=== PATIENT | male | born 1950 | race Caucasian/White ===

== ENCOUNTER → 2017-06-12 | Outpatient (CLI) | payer MEDICARE, BC ==
[2017-06-12 09:08] LABS: Blood Urea Nitrogen 24 mg/dL (9-20); Non-African American GFR(MDRD) >60 (>60 ml/min/1.73 sqM)
--- NOTE | 2017-06-12 11:29 | MR ---
EXAMINATION TYPE: MR lumbar spine wo/w con DATE OF EXAM: 06/12/2017 COMPARISON: NONE HISTORY: low back pain , numbness TECHNIQUE: Multiplanar, multisequence images of the lumbar spine were acquired utilizing 13 mL intravenous Gadav ist gadolinium contrast. L1-L2: Posterior broad-based disc bulge causes mild anterior mass effect on the thecal sac. No signif icant foraminal encroachment or central stenosis. Facet arthropathy change with hypertrophy of the li gamentum flavum encroaches on the lateral recesses. L2-L3: Broad-based posterior disc herniation causes mild anterior mass effect on the thecal sac centr ally. No significant central stenosis. There is facet arthropathy with hypertrophy of the ligamentum flavum encroaching on the lateral recesses. No significant foraminal encroachment. L3-L4: Posterior extension of endplate disc complex is present, there is posterior central disc herni ation causing mild anterior mass effect on the thecal sac. Facet arthropathy with hypertrophy of the ligamentum flavum encroaches on the lateral recesses. No significant foraminal encroachment, only mil d central stenosis. L4-L5: Posterior extension of endplate disc complex causes mild anterior mass effect on the thecal sa c. Facet arthropathy with hypertrophy ligamentum flavum encroaches on the lateral recesses. Circumfer ential extension of endplate disc complex results in some foraminal encroachment bilaterally left gre ater than right. No significant central stenosis. L5-S1: Posterior extension of endplate disc complex causes mild anterior mass effect on the thecal sa c, circumferential extension causes bilateral foraminal encroachment. No significant central stenosis . Lumbar segments are intact. No paraspinal masses are identified. Conus medullaris has a normal appe arance. There is a spinal curvature. There is multilevel spondylosis. Loss of disc height and signal present at the intervertebral levels with associated vacuum phenomenon. Multilevel Schmorl's node for mation is also present. No significant enhancement following contrast administration. IMPRESSION: Degenerative disc disease, multilevel facet arthropathy, foraminal encroachment as described. Spinal curvature.
== END | disposition home or self-care (01) ==
LOC: RADMRIMAIN 08:28
PROVIDERS: ATTEND Internal Medicine
DX: M51.36 Other intervertebral disc degeneration, lumbar region (principal); M46.96 Unspecified inflammatory spondylopathy, lumbar region; I10 Essential (primary) hypertension
CPT/HCPCS: 82565; 84520; 72158; A9581

== ENCOUNTER 2019-03-04 06:38 | Day surgery (SDC) | payer BC, MEDICARE ==
[2019-02-25 09:52] VITALS: BMI 34.2
[~2019-03-04 06:38] MED LIST: LACTATED RINGERS 1,000 ML IV SCH; LIDOCAINE 1% 20 ML VIAL (10MG/ML) FOR IV START INTRADERMA PRN
[2019-03-04 07:16] VITALS: TEMP 98
[2019-03-04 07:29] LABS: Glucose,Whole Blood 111 mg/dL (75-99)
[2019-03-04] MEDS ORDERED: LIDOCAINE 1% INJ 10MG/ML (20 ML MDV) ONE (07:35)
[2019-03-04] MEDS ORDERED: PROPOFOL 10 MG/ML 20 ML VIAL IV ONE (07:35)
--- NOTE | 2019-03-04 07:43 | P.GSHP ---
History of Present Illness H&P Date: 03/04/19 CHIEF COMPLAINT: GERD and colon screen HISTORY OF PRESENT ILLNESS: The patient is a 68-year-old male who presents with gastroesophageal reflux disease and need for colon screen. Upper and lower endoscopy were offered for further evaluation and management. PAST MEDICAL HISTORY: Please see list. PAST SURGICAL HISTORY: Please see list. MEDICATIONS: Please see list. ALLERGIES: Please see list. SOCIAL HISTORY: No illicit drug use FAMILY HISTORY: No reports of Crohn disease or ulcerative colitis. REVIEW OF ORGAN SYSTEMS: CONSTITUTIONAL: No reports of fevers or chills. GI: Denies any blood in stools or constipation. PHYSICAL EXAM: VITAL SIGNS: Stable GENERAL: Well-developed pleasant in no acute distress. HEENT: No scleral icterus. Extraocular movements grossly intact. Moist buccal mucosa. NECK: Supple without lymphadenopathy. CHEST: Unlabored respirations. Equal bilateral excursions. CARDIOVASCULAR: Regular rate and rhythm. Distal 2+ pulses. ABDOMEN: Soft, nondistended. MUSCULOSKELETAL: No clubbing, cyanosis, or edema. ASSESSMENT: 1. Gastroesophageal reflux disease 2. Colon screen. PLAN: 1. 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 "borderline diabetic" diet controlled History of Any Multi-Drug Resistant Organisms: None Reported Past Surgical History: Appendectomy, Orthopedic Surgery Additional Past Surgical History / Comment(s): haylie carpal tunnel, rt shoulder surgery to remove spurs,haylie foot surgery to remove spurs Past Anesthesia/Blood Transfusion Reactions: No Reported Reaction Smoking Status: Never smoker - Past Family History Mother Family Medical History: Cancer Father Family Medical History: Myocardial Infarction (MD) Medications and Allergies Home Medications Medication Instructions Recorded Confirmed Type Acetaminophen [Tylenol Arthritis] 650 mg PO DAILY 02/25/19 03/04/19 History Ergocalciferol (Vitamin D2) 50,000 unit PO FR 02/25/19 03/04/19 History [Vitamin D2] Gabapentin [Neurontin] 300 mg PO TID 02/25/19 03/04/19 History Levothyroxine Sodium [Synthroid] 25 mcg PO DAILY 02/25/19 03/04/19 History Losartan Potassium [Cozaar] 50 mg PO DAILY 02/25/19 03/04/19 History Naproxen [Naprosyn] 500 mg PO Q12HR 02/25/19 02/25/19 History Homer-3 Fatty Acids [Homer-3] 1,000 mg PO QID 02/25/19 02/25/19 History Omeprazole [PriLOSEC] 20 mg PO AC-BRKFST 02/25/19 03/04/19 History buPROPion [Wellbutrin] 100 mg PO DAILY 02/25/19 03/04/19 History Allergies Allergy/AdvReac Type Severity Reaction Status Date / Time aspirin Allergy Swelling Verified 03/04/19 07:11 Surgical - Exam Vital Signs Temp Pulse Resp BP Pulse Ox 98.0 F 93 16 157/87 97 03/04/19 07:14 03/04/19 07:14 03/04/19 07:14 03/04/19 07:14 03/04/19 07:14 Results - Labs Abnormal Lab Results - Last 24 Hours (Table) 03/04/19 Range/Units 07:23 POC Glucose (mg/dL) 111 H (75-99) mg/dL
--- NOTE | 2019-03-04 07:53 | P.PCN ---
Date of Procedure: 03/04/19 Description of Procedure: PREOPERATIVE DIAGNOSIS: Gastroesophageal reflux disease. POSTOPERATIVE DIAGNOSIS: Gastritis with recent bleeding Gastroesophageal reflux disease. Diaphragmatic hiatal hernia OPERATION: Esophagogastroduodenoscopy with biopsies along antrum. SURGEON: Phylicia Monge MD ANESTHESIA: MAC. INDICATIONS: The patient is a 68-year-old male who presents with a history of reflux disease. Benefits and risks of the procedure were described. Informed consent was obtained. DESCRIPTION: The patient was brought into the endoscopy suite and laid in the left lateral decubitus position. An Olympus gastroscope was passed along the posterior oropharynx down to the distal esophagus where the squamocolumnar junction was encountered at 38 cm from the incisors. The stomach was entered and no bile reflux was found. Additional findings are listed below. Biopsies with cold forceps were obtained of the antrum. The first through third portion of the duodenum was examined and unremarkable. Retroflexion of the scope confirmed Hill grade 4 lower esophageal valve. The squamocolumnar junction demonstrated LA grade B erosive esophagitis. The stomach was desufflated. The patient tolerated the procedure well. FINDINGS: Squamocolumnar junction 38 cm from the incisors. Diaphragmatic hiatus at 41 cm. Hiatal hernia, 3 cm Hill grade 4 lower esophageal valve. LA grade B erosive esophagitis. No active duodenitis. Chronic gastritis with recent bleed at gastric cardia Few small hyperplastic gastric polyps gastric fundus RECOMMENDATIONS: Upper endoscopy as needed.
--- NOTE | 2019-03-04 08:11 | P.PCN ---
Date of Procedure: 03/04/19 Description of Procedure: PREOPERATIVE DIAGNOSIS: Personal history of colon polyps. POSTOPERATIVE DIAGNOSIS: Personal history of colon polyps. Sigmoid colon polyp Hepatic flexure colon polyp External hemorrhoids, grade 2. OPERATION: Colonoscopy to the ileocecal valve and appendiceal orifice. Colonoscopy with multiple cold forceps biopsies. SURGEON: Phylicia Monge MD. ANESTHESIA: MAC. INDICATIONS: The patient is a 68-year-old male who presents for colonoscopy screening. Last colonoscopy 5 years ago. Benefits and risks were described and informed consent was obtained. DESCRIPTION OF PROCEDURE: The patient had undergone GoLytely prep. He had been brought into the operating room and laid in the left lateral decubitus position. After adequate intravenous sedation, the rectum was examined with 2% lidocaine jelly. External hemorrhoids were encountered. The rectal tone was within normal limits. No lesions were palpated in the rectal vault. An Olympus colonoscope was advanced until the ileocecal valve and appendiceal orifice were clearly viewed. The prep was fair with visualization of the mucosal folds. No scattered diverticulosis was encountered. Multiple colonic polyps were cold forcep biopsy. No evidence of focal colitis was found. Retroflexion of the scope demonstrated grade 2 internal hemorrhoids without active bleeding or inflammation. The colon was desufflated. The patient had tolerated the procedure well. Withdrawal time was over 6 minutes. FINDINGS: Aronchick preparation quality scale 2 (1-5) Internal hemorrhoids, grade 2 External hemorrhoids, grade 3. No arteriovenous malformations. Removal of 2 polyps: - Cold forceps biopsy at 25 cm from the anal verge, 3 mm polyp. - Cold forceps biopsy at hepatic flexure, 3 mm polyp. No focal colitis. RECOMMENDATIONS: Was high risk colon polyps, repeat colonoscopy 3 years, 2021 Plan - Discharge Summary Discharge Rx Participant: No New Discharge Prescriptions: New Omeprazole 40 mg PO DAILY #90 capsule.dr Continue Losartan Potassium [Cozaar] 50 mg PO DAILY Gabapentin [Neurontin] 300 mg PO TID buPROPion [Wellbutrin] 100 mg PO DAILY Ergocalciferol (Vitamin D2) [Vitamin D2] 50,000 unit PO FR Levothyroxine Sodium [Synthroid] 25 mcg PO DAILY Acetaminophen [Tylenol Arthritis] 650 mg PO DAILY [place]-3 Fatty Acids [[place]-3] 1,000 mg PO QID Naproxen [Naprosyn] 500 mg PO Q12HR Discontinued Omeprazole [PriLOSEC] 20 mg PO AC-BRKT Discharge Medication List Acetaminophen [Tylenol Arthritis] 650 mg PO DAILY 02/25/19 [History] Ergocalciferol (Vitamin D2) [Vitamin D2] 50,000 unit PO FR 02/25/19 [History] Gabapentin [Neurontin] 300 mg PO TID 02/25/19 [History] Levothyroxine Sodium [Synthroid] 25 mcg PO DAILY 02/25/19 [History] Losartan Potassium [Cozaar] 50 mg PO DAILY 02/25/19 [History] Naproxen [Naprosyn] 500 mg PO Q12HR 02/25/19 [History] Cat [place]-3 Fatty Acids [[place]-3] 1,000 mg PO QID 02/25/19 [History] buPROPion [Wellbutrin] 100 mg PO DAILY 02/25/19 [History] Omeprazole 40 mg PO DAILY #90 capsule. 03/04/19 [Rx] Follow up Appointment(s)/Referral(s): Phylicia Monge MD [STAFF PHYSICIAN] - 03/31/19 Patient Instructions/Handouts: Hiatal Hernia (DC), Gastritis (DC), Gastroesophageal Reflux Disease (DC), Colorectal Polyps (DC), Hemorrhoids (ED) Activity/Diet/Wound Care/Special Instructions: Repeat colonoscopy in 3 years, 2021 Discharge Disposition: HOME SELF-CARE
[2019-03-04 08:30] VITALS: BP 130/72; PULSE 77; RESP 18
== END 2019-03-04 08:41 | disposition home or self-care (01) ==
LOC: ORWHC2ENDO 06:38
PROVIDERS: ATTEND Surgery Plastic and Reconstructive Surgery
DX: Z12.11 Encounter for screening for malignant neoplasm of colon (principal); K63.5 Polyp of colon; Z86.010 Personal history of colon polyps; K64.1 Second degree hemorrhoids; K64.2 Third degree hemorrhoids; K29.51 Unspecified chronic gastritis with bleeding; K21.0 Gastro-esophageal reflux disease with esophagitis; K31.7 Polyp of stomach and duodenum; I10 Essential (primary) hypertension; K44.9 Diaphragmatic hernia without obstruction or gangrene; E11.9 Type 2 diabetes mellitus without complications; E07.9 Disorder of thyroid, unspecified; N42.9 Disorder of prostate, unspecified; F41.9 Anxiety disorder, unspecified; M19.90 Unspecified osteoarthritis, unspecified site; Z79.890 Hormone replacement therapy; Z79.899 Other long term (current) drug therapy; Z82.49 Family history of ischemic heart disease and other diseases of the circulatory system; Z80.9 Family history of malignant neoplasm, unspecified
CPT/HCPCS: 88305; 45380; 43239; J2001; J2704

== ENCOUNTER → 2024-05-13 | Outpatient (CLI) | payer MEDICARE ==
--- NOTE | 2024-05-13 12:55 | CT ---
EXAMINATION TYPE: CT brain wo con CT DLP: 1167.7 mGycm, Automated exposure control for dose reduction was used. DATE OF EXAM: 05/13/2024 12:43 PM COMPARISON: None. CLINICAL INDICATION:Male, 73 years old with history of R42 DIZZINESS M62.81 MUSC WEAK R41.3 ANMESIA, c/o dizziness, weakness, memory loss TECHNIQUE: Brain: Multiple axial CT images of the brain were obtained without IV contrast. . Coronal and sagitta l reformats reviewed. FINDINGS: Brain: Extra-axial spaces: No abnormal extra-axial fluid collections. Ventricular system: Within normal limits Cerebral parenchyma: Age appropriate cerebral volume loss. No acute intraparenchymal hemorrhage or ma ss effect. The murphy-white junction is well differentiated. Scattered hypoattenuating areas are seen within the periventricular white matter. Cerebellum: Unremarkable. Mass effect: No evidence of midline shift. Intracranial vasculature: Atherosclerotic calcifications of the intracranial vessels. Soft tissues: Normal. Calvarium/osseous structures: No depressed skull fracture. Paranasal sinuses and mastoid air cells: Clear Visualized orbits: Orbital contents are intact. IMPRESSION: 1. No acute intracranial process. 2. Nonspecific white matter changes, likely secondary to chronic small vessel ischemic disease. [facility], , 05/13/2024 12:52 PM
== END | disposition home or self-care (01) ==
LOC: RADCTMAIN 11:47
PROVIDERS: ATTEND Psychiatry & Neurology Neurology
DX: M62.81 Muscle weakness (generalized) (principal); R42 Dizziness and giddiness; R41.3 Other amnesia; I67.82 Cerebral ischemia; I70.8 Atherosclerosis of other arteries
CPT/HCPCS: 70450

== ENCOUNTER → 2024-07-24 | Outpatient (CLI) | payer MEDICARE ==
--- NOTE | 2024-07-24 15:02 | MR ---
EXAMINATION TYPE: MR Prostate wo/w con DATE OF EXAM: 07/24/2024 10:01 AM COMPARISON: None. CLINICAL INDICATION: Male, 74 years old with history of N40.2 prostate nodule; Prostate nodule/mass TECHNIQUE: Multi-planar, multi-sequence imaging of the pelvis is performed prior to and following the uncomplicated administration of bolus intravenous gadolinium. IV Contrast: 10.5 mL Gadobutrol Interpretive Criteria: PI-RADS v2.1 SERUM PSA: 1.82 SURGICAL PATHOLOGY: No data available. FINDINGS: Prostatic dimensions: 4.5 x 4.7 x 5.1 cm. Ellipsoid Volume:56.48 (PSA density=0.03 ng/mL/mL) CENTRAL GLAND (Central and Transition Zones/CZ+TZ): Multiple bilateral, heterogenous appearing hypertrophic stromal nodules, without suspicious lesion. M edian lobe hypertrophy with protrusion into the base of the bladder. (PI-RADS 2) PERIPHERAL ZONE (PZ): Bilateral linear, indistinct wedgelike areas of low ADC, and low T2 signal, No evidence of masslike a bnormality, or localized perfusional hypervascularity, to further suggest a focus of clinically signi ficant prostate cancer. (PI-RADS 2) SEMINAL VESICLES (SV): Symmetric and unremarkable. PERIPROSTATIC TISSUES: Unremarkable. LYMPH NODES: No enlarged pelvic lymph node. REMAINING PELVIS: Bladder wall is within normal limits given distention. No abnormal free or organized intrapelvic fluid collection. No pathologic bowel dilation or mural thickening. No hernia visualized OSSEOUS STRUCTURES: No suspicious osseous abnormality. IMPRESSION: 1. No specific features for high-risk prostate cancer. Maximum PI-RADS score: 2. 2. Moderate BPH, estimated gland volume 56.48 mL. 3. No suspicious osseous lesion. No lymphadenopathy. No evidence of prostate adenocarcinoma involving the periprostatic tissues. [facility], , 07/24/2024 2:59 PM
== END | disposition home or self-care (01) ==
LOC: RADMRIMAIN 08:13
PROVIDERS: ATTEND Urology
DX: N40.2 Nodular prostate without lower urinary tract symptoms (principal); N40.0 Benign prostatic hyperplasia without lower urinary tract symptoms
CPT/HCPCS: 72197; A9585